=== PATIENT | male | born 1965 | race Two or more races ===

== ENCOUNTER 2024-02-24 04:11 | Day surgery (SDC) | payer OTHER ==
[2024-02-20 12:40] VITALS: BMI 27.6
[2024-02-24 08:32] VITALS: TEMP 97.3
[2024-02-24 08:51] VITALS: BP 121/76; PULSE 50; RESP 19
== END 2024-02-24 09:15 | disposition home or self-care (01) ==
LOC: JASU-ENDO 04:11
PROVIDERS: ATTEND Internal Medicine Gastroenterology
PROC: 0DJD8ZZ Inspection of Lower Intestinal Tract, Via Natural or Artificial Opening Endoscopic (ICD-10-PCS; principal; 2024-02-24 08:00)
DX: Z12.11 Encounter for screening for malignant neoplasm of colon (principal)

== ENCOUNTER 2024-02-25 15:55 | Emergency (ER) | payer OTHER ==
[2024-02-25 16:10] VITALS: BP 130/80; PULSE 75; RESP 16; TEMP 97.9; BMI 25.6
[2024-02-25] MEDS ORDERED: ACETAMINOPHEN 500 MG TABLET (FP) ONE (17:22)
[2024-02-25] MEDS ORDERED: DIPHTH,PERTUSS(ACELL),TET 0.5 ML DISP.SYRIN IM ONE (17:23)
[2024-02-25] MEDS ORDERED: LIDOCAINE 5% TOPICAL PATCH ONE (17:23)
[2024-02-25] MEDS: DIPHTH,PERTUSS(ACELL),TET 0.5 ML DISP.SYRIN IM ONE (17:28)
[2024-02-25] MEDS: LIDOCAINE 5% TOPICAL PATCH TP ONE (17:29)
[2024-02-25] MEDS: ACETAMINOPHEN 500 MG TABLET (FP) PO ONE (17:29)
[2024-02-25] MEDS ORDERED: LIDOCAINE PATCH REMOVAL MC SCH (22:00)
== END 2024-02-25 18:34 | disposition home or self-care (01) ==
LOC: FER 15:55
PROC: 3E0234Z Introduction of Serum, Toxoid and Vaccine into Muscle, Percutaneous Approach (ICD-10-PCS; principal; 2024-02-25)
DX: M62.830 Muscle spasm of back (principal); V27.49XA Other motorcycle driver injured in collision with fixed or stationary object in traffic accident, initial encounter; Z23 Encounter for immunization
CPT/HCPCS: 90715; 99284-25